=== PATIENT | male | born 1965 | race Caucasian/White ===

== ENCOUNTER 2017-05-31 23:04 | Emergency (ER) | payer MEDICARE ==
[~2017-05-31 23:04] MED LIST: Iopamidol 370 76% 100 ML VIAL ONE
[2017-05-31 23:40] LABS: #Basophils 0.1 thou/uL (0.0-0.2); #Eosinphils 0.1 thou/uL (0.0-0.7); #Lymphocytes 1.5 thou/uL (1.20-3.40); #Monocytes 0.3 thou/uL (0.11-0.59); #Neutrophils 2.5 thou/uL (1.40-6.50); %Basophils 1.9 % (0.0-1.0); %Eosinophils 2.7 % (0.0-10.0); %Monocytes 6.8 % (0.0-10.0); %Neutrophils 55.6 % (42.0-75.0); Hemoglobin 13.9 g/dL (14.0-18.0); Mean Corpuscular HGB CONC 34.8 g/dL (32.0-36.0); Mean Corpuscular Hemoglobin 29.5 pg (27.0-31.0); Mean Corpuscular Volume 84.9 fl (80.0-94.0); Platelet Count 254 thou/uL (130-400); RBC Distribution Width 11.8 % (11.5-14.5); Red Blood Cell (RBC) Count 4.71 mill/uL (4.70-6.10); White Blood Cell (WBC) Count 4.5 thou/uL (4.8-10.8)
[2017-05-31 23:57] LABS: Anion Gap 17 mmol/L (10-20); BUN (Urea Nitrogen) 8 mg/dL (8.4-25.7); Calc. Creatinine Clearance 0 mL/min (70-130); Calcium 9.3 mg/dL (7.8-10.44); Carbon Dioxide 23 mmol/L (22-29); Chloride 99 mmol/L (98-107); Estimated GFR-MDRD Greater than 90; Glucose 88 mg/dL (70-105); Potassium 3.7 mmol/L (3.5-5.1); Sodium 135 mmol/L (136-145)
[2017-06-01] MEDS ORDERED: Clindamycin/D5W 600 mg/50 ml Premix Bag ONE (00:38)
--- NOTE | 2017-06-01 08:34 | CT ---
PRELIMINARY REPORT/[facility]/EMERGENCY AFTER HOURS PROCEDURE: EXAM: CT Neck With Intravenous Contrast CLINICAL HISTORY: 52 years old, male; Pain; Neck pain; Patient HX: Pt swelling rt side if neck. 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 TECHNIQUE: Axial computed tomography images of the neck with intravenous contrast. All CT scans at this facilit y use one or more dose reduction techniques, viz.: automated exposure control; ma/kV adjustment per patient size (including targeted exams where dose is matched to indication; i.e. head); or iterative reconstruction technique. CONTRAST: 89 mL of isovue 370 administered intravenously. COMPARISON: No relevant prior studies available. FINDINGS: Nasopharynx: Unremarkable. Oropharynx: Unremarkable. No significant tonsillar enlargement. No peritonsillar abscess. Hypopharynx: Unremarkable. Larynx: Unremarkable. Normal epiglottis. Trachea: Unremarkable. Retropharyngeal space: Unremarkable. Submandibular/parotid glands: Unremarkable. Glands are normal in size. Thyroid: Unremarkable. No enlarged or calcified nodules. Bones/joints: No acute fracture. 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 There is no right neck mass or inflammatory process detected. Vasculature: There is mild atherosclerotic calcification of the carotid vasculature. Lymph nodes: There are shotty mildly prominent lymph nodes in the left submandibular region, and pos terior left cervical chain. This may be reactive, but a lymphoproliferative process is not entirely excluded. A left submandibular lymph node measures 13 x 11 mm on axial image 50. A level VB left cer vical chain lymph node measures 11 x 17 mm on axial image 66. Sinuses: There is nonspecific mild paranasal sinus mucosal thickening. Dental: There is multifocal dental disease. Lung apices: Unremarkable as visualized. IMPRESSION: 1. There are chronic surgical changes of radical right neck dissection with resection of the sternoc leidomastoid muscle. There is no right neck mass or inflammatory process detected. 2. There are shotty mildly prominent lymph nodes in the left submandibular region, and posterior lef t cervical chain. This may be reactive, but a lymphoproliferative process is not entirely excluded. Thank you for allowing us to participate in the care of your patient. Dictated and Authenticated by: Herbert Ji DO 06/01/2017 1:16 AM Central Time ([place] \T\ [place]) FINAL REPORT POST CONTRAST SOFT TISSUE NECK CT: HISTORY: Neck pain. COMPARISON: None. TECHNIQUE: Post contrast soft tissue neck CT is performed in the axial plane. Reformatted images are submitted for interpretation. FINDINGS: This report is in agreement with the preliminary report by [facility]. Chronic surgical changes involving right neck dissection, with resection of the sternocleidomastoid muscle, right submandibular gland, and right parotid gland. Stranding of the fat along the anterior aspect of the right carotid space, likely post surgical. A few scattered nonspecific soft tissue n braulio lymph nodes, as described in the preliminary report by [facility], are noted. The lymph nodes are pres umed to be reactive. Clinical correlation to exclude other etiologies is strongly recommended. POS: [facility]
== END 2017-06-01 01:53 | disposition home or self-care (01) ==
LOC: MADERS 23:04
DX: R22.1 Localized swelling, mass and lump, neck (principal)
CPT/HCPCS: 70491; 80048; 85025; 96365; J3490